=== PATIENT | female | born 1980 | race Native Hawaiian/Other Pacific Islander ===

== ENCOUNTER 2024-08-12 08:19 | Outpatient (REF) | payer OTHER, SELFPAY ==
--- NOTE | 2024-08-12 08:15 | CRLHL7_ITS ---
For Patients: As a result of the Century Cures Act, medical imaging exams and procedure reports are released immediately into your electronic medical record. You may view this report before your referring provider. If you have questions, please contact your health care provider. INDICATION: BILATERAL SCREENING MAMMOGRAM, ASYMPTOMATIC 44 Y/O FEMALE COMPARISON: BASELINE TECHNIQUE: Digital mammogram in CC and MLO projections including computer-aided detection (CAD) and tomosynthesis. BREAST COMPOSITION: The breasts are heterogeneously dense, which may obscure small masses. FINDINGS: No suspicious findings. ASSESSMENT: BI-RADS 1 Negative RECOMMENDATION: Annual screening mammogram. A lay language report of this examination will be provided to the patient. Dictated by: Shelton Constantino MD @ 08/12/2024 11:45:32 (Electronically Signed)
--- OUTSIDE RECORDS SUMMARY | 2024-08-13 00:31 | XMS_ITS | Data Portability ---
Author Organization [facility] Address [address] [place] [address] [place] [address] Assessment No assessment recorded. Plan of Treatment Reminders Order Date Submit Date Provider Last Modified By Organization Details Last Modified Time Details Appointments None recorded. Lab pap, LB + HR HPV 2023 ROLAN Not available 11:07:38 Referral None recorded. Procedures None recorded. Surgeries None recorded. Imaging MAMMO, screening, bilateral 2023 jbeitz Not available 5 15:22:00 Medication Orders clotrimazol e 1 % topical cream [address], [address], 4 16:56:03 fluconazole 150 mg tablet [address], [address], 4 16:56:17 naproxen 250 mg tablet [address], [address], 12:17:36 naproxen 250 mg tablet [address], [address], 18:29:51 Patient Targets Encounter Date Encounter Id Patient Goals Patient Target Last Modified By Organization Details Last Modified Time 08/14/2020 [id number] if weigh goes down, blood sugar will decrease antony Not available 08/15/2020 12:16:10 Patient Instructions Encounter Date Encounter Id Patient Instructions Last Modified By Organization Details Last Modified Time 07/16/2020 [id number] x-ray if not improved antony Not available 07/16/2020 18:28:40 Reason for Referral None Reported. Results Created Date Observation Date Name Description Value Unit Range Abnormal Flag Note LastModifiedBy Organization Detail LastModifiedTime 08/14/19 21 08/13/2020 lipid panel , serum creatinine 0.5 Not Available Not Luz Maria ilable 08/14/2020 17:19:23 08/14/19 21 08/13/2020 lipid panel , serum ALT 21 Not Available Not Availa ble 08/14/2020 17:19:23 08/14/19 21 08/13/2020 lipid panel , serum total cholesterol 189 Not Available Not Available 08/14/2020 17:19:23 08/14/19 21 08/13/2020 lipid panel , serum triglyceride s 172 Not Available Not Available 07/25 17:19:23 08/14/19 21 08/13/2020 lipid panel , serum HDL 45 Not Available Not Availa ble 08/14/2020 17:19:23 08/14/19 21 08/13/2020 lipid panel , serum LDL 110 Not Available Not Availa ble 08/14/2020 17:19:23 08/14/19 21 08/13/2020 CMP, serum or plasm a creatinine 0.5 Not Available Not Luz Maria ilable 08/14/2020 15:04:46 08/14/19 21 08/13/2020 CMP, serum or plasm a ALT 21 Not Available Not Availa ble 08/14/2020 15:04:46 08/14/19 21 08/13/2020 CMP, serum or plasm a total cholesterol 189 Not Available Not Available 08/14/2020 15:04:46 08/14/19 21 08/13/2020 CMP, serum or plasm a triglyceride s 172 Not Available Not Available 07/25 15:04:46 08/14/19 21 08/13/2020 CMP, serum or plasm a HDL 45 Not Available Not Availa ble 08/14/2020 15:04:46 08/14/19 21 08/13/2020 CMP, serum or plasm a LDL 110 Not Available Not Availa ble 08/14/2020 15:04:46 08/13/19 25 08/12/2024 MAMMO , scree cristóbal, bilat eral No observ ation record ed. [facility] [address] [place], [address], 08/12/2024 12:49:47 Result Notes None recorded. Medical Equipment None Reported. Medications Name Sig Start Date Stop Date Status Note LastModified by Organization Details LastModified Time fluconazole 150 mg tablet TAKE 1 TABLET ONCE A WEEK FOR 2-4 WEEKS UNTIL SYMPTOMS IMPROVE KAY 1 TABLETA POLLY VEZ POR SEMANA POR ENTRE 2-4 SEMANAS active Not Available Not Available No t Available Prilosec 20 mg capsule,del ayed release take 1 capsule by oral route every day 30 minutes to 1 hour before a meal 07/16 completed Not Available Not Available Not Available naproxen 250 mg tablet TAKE ONE TABLET BY MOUTH TWICE A DAY active Not Available Not Available No t Available Antifungal (clotrimazo le) 1 % topical cream APPLY TO THE AFFECTED AND SURROUNDI NG AREAS OF SKIN BY TOPICAL ROUTE 2 TIMES PER DAY IN THE MORNING AND EVENING active Not Available Not Available No t Available Vitals Date Recorded Body weight Systolic blood pressure Diastolic blood pressure Provider Name and Address Organization Details Last Updated DateTime 08/14/2020 18088.97 g 110 mm[Hg] 64 mm[Hg] Arnoldo Forte MD [address] [place], [address], [place] [facility] 08/15/2020 12:12:15 Date Recorded Body height Body mass index (BMI) Body weight Oxygen saturation Oxygen saturation in Arterial blood by Pulse oximetry Heart rate Systolic blood pressure Diastolic blood pressure Provider Name and Address Organization Details Last Updated DateTime 4 149 cm 29.8 kg/m2 70262.4 1 g 99 % 99 % 98 /min 119 mm[Hg] 67 mm[Hg] LEXI Arriaga [address] [place], [address], [place] [facility] [employer] 15:50:53 Social History None recorded. Functional Status None recorded. Mental Status None recorded. Family History Nothing Reported. Medical History No medical history recorded. Gynecological HistoryNo gynecological history recorded. Obstetrics History GPAL:G 0 P 0 0 0 0 Past Encounters Encounter ID Performer Location Encounter Start Date Encounter Closed Date Diagnosis/Indication Diagnosis SNOMED-CT Code Diagnosis ICD10 Code Diagnosis Note [id number] Arnoldo Forte MD [facility] [address] [place] [address] 07/16/2020 16:39:06 07/16/2020 18:10:49 Pain in right foot 5660200704 14881 M79.671 needs analgesia [id number] Arnoldo Forte MD [facility] [address] [place] [address] 08/14/2020 18:09:52 08/15/2020 14:34:14 Pain in right foot 2883194690 65708 M79.671 should resume naproxen with food [id number] LEXI Arriaga [facility] [address] [place] [address] 11/30/2023 15:37:48 11/30/2023 16:34:16 Genitocrural intertrigo caused by Key [id number] B37.2 Treat intertrigo with PO fluconazol e 150mg once/week for 2-4 weeksMay also use topical clotrimazo le to the area twice daily ( can also try this)F/U if not resolving Screening for malignant neoplasm of cervix 107822386 Z12.4 Pap and HPV pendingWil l f/u with results when available. If normal, rescreen in 5 yerasS[facility]: [facility] 1225 Screening for malignant neoplasm of breast 375377221 Z12.39 Normal CBEScreeni ng mammogram pending MATIAS: [facility] 1225 Health Concerns Section Related Observation LastModified by Organization Detai ls LastModified Time None Recorded Concern Status LastModified by Organization Details LastModified Time None Recorded Advance Directives Directive None Recorded Payers Insurance Date Sequence Insurance Name Policy Number Policy Turpin Covered Member ID Turpin Member ID Guarantor Name 07/03/2020 SLIDING FEE SCHEDULE - DISCOUNT Tina Ferreira 01/26/2024 [place] SCREENING PROGRAM - [place] [employer] Tina Ferreira [id number] Tina Ferreira Notes Date Note Type Note Provider Name and Address Organization Details Recorded Time 07/16/2020 text/html picking like discomfort in right fifth toe, no injury, hx of fatty liver Arnoldo Forte MD [address] [place], [address], [email or web address] 07/16/2020 18:30:35 08/14/2020 text/html improved on NSAI D, stopped it and them recurred, job at [employer] Arnoldo Forte MD [address] [place], [address], [facility] 08/15/2020 12:17:53 11/30/2023 text/html Pt here today wi th c/o vaginal irritationFirst visit with this providerPt reports that after her last period, she had sex and then afterward began noticing some burning and itching in the perineumDid buy a vaginal cream in the pharmacy (vagisil anti itch) but it didn't helpDid switch menstrual pads and wonders if this related to that change?Denies discharge, dysuria, hematuria, urinary frequency, urgency.Says has had some penile irritation as wellHx of tubal ligation at age 28 LMP: 2 weeks ago Preventative:- cervical ca screening: unsure, can't remember last time she had it.- Breast ca screening: has never had. denies FH of breast ca LEXI Arriaga [address] [place], [address], [facility] 11/30/2023 16:33:13 OBGyn Episode No OBEpisode recorded.
--- OUTSIDE RECORDS SUMMARY | 2024-08-13 00:31 | XMS_ITS | Clinical Summary ---
Author Organization [email or web address] Address [address] [place] [address] Care Team Providers Care Automatic Data Processing Planner Name Role Phone Pcp, No Primary Care Provider Unavailabl e Allergies No known active allergies Medications hydrocortisone (PREPARATION H HYDROCORTISONE) 1 % creamIndication s:Hemorrhoid Apply topically to affected area(s) 2 times daily if needed for Itching. 1 Tube 0 5 Active Active Problems Problem Noted Date Diagnosed Date Esophageal reflux 09/18/2006 Overview (09/18/2006): Gastroesophageal Reflux Immunizations Immunization Administration Dates Next Due AMB Influenza, IIV3 (Age >=3 years)(Flu Clinic O nly) 12/23/2010,12/04/2008 AMB Influenza, IIV4 PF (=>6 mos Flulaval,Fluzone Fluarix)(Flu Clinic Only) 01/13/2014 Influenza A (H1N1), Inactivated (Age >=3 Years) 01/10/2009 Td (Age >=7 Years) 02/24/1996 Tdap 10/26/2007 Family History Medical History Relation Name Comments Good Health Brother Unknown Father Good Health Mother Good Health Sister Cancer-breast No Family History Cancer-colon No Family History Heart Disease No Family History Hyperlipidemia No Family History Hypertension No Family History Relation Name Status Comments Brother Father Mother Sister Social History Tobacco Use Types Packs/Day Years Used Date Smoking Tobacco: Never Smokeless Tobacco: Never Tobacco Cessation:Counseling Given: Yes Alcohol Use Standard Drinks/Week Comments No 0 (1 standard drink = 0.6 oz pur e alcohol) Comments No Sex and Gender Information Value Date Recorded Sex Assigned at Not on file 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 Please review and update details. Last Filed Vital Signs Vital Sign Reading Time Taken Comments Blood Pressure 95/60 07/04/2015 4:12 PM CDT Pulse 77 07/04/2015 4:12 PM CDT Temperature 36.9 C (98.5 F) 07/04/2015 4:12 PM CDT Respiratory Rate - - Oxygen Saturation 98% 07/04/2015 4:12 PM CDT Inhaled Oxygen Concentration - - Weight 61.1 kg (134 lb 12.8 oz) 07/04/2015 4:12 PM CDT Height 148.6 cm (4' 10.5) 07/04/2015 4:12 PM CD T Body Mass Index 27.69 07/04/2015 4:12 PM CDT Plan of Treatment Health Maintenance Due Date Last Done Comments Hepatitis C screening for age 18-79 2000 Hepatitis B series for 19+ (1 of 3 - 19+ 3-dose series) 2001 BMI (ht and wt on same day) for age 18+ 07/03/2016 07/04/2015 Depression screening for age 12+ 07/03/2016 07/04/2015 Tetanus booster 10/25/2017 10/26/2007, 02/24/1996 Pap test for age 21-65 07/03/2018 6, 05/24/2012, 06/18/2010, Additional history exists COVID-19 vaccine series (2023- season) 2023 Influenza Vaccine (Season Ended) 2024 01/13/2014, 12/23/2010, 12/04/2008 Tdap Completed 10/26/2007 HIV for age 15-65 Completed 07/28/2008, 09/17/2006 Pneumococcal series for age 6-49 Aged Out No longer eligible based on patient's age to complete this topic Procedures Procedure Name Priority Date/Time Associated Diagnosis Comments [employer] THIN PREP PAP SCREEN IMAGED Routine 07/04/2015 5:29 PM CDT Screening ANTI HIV 1/2 Routine 07/28/2008 3:18 PM CDT Supervision of Other Normal (HC) from Last 3 Months or Most Recently Relevant to Health Maintenance Results * [employer] THIN PREP PAP SCREEN IMAGED (07/04/2015 5:29 PM CDT) [employer] LE[employer]ER CYTOLOGY See Anatomic Pathology case 07/05/2015 6:00 PM CDT [facility] Specimen (specimen) (Cervical) Non-Blood / Unknown 07/04/2015 5:29 PM CDT 07/04/2015 5:29 PM CDT us Miki Pereyra MD PATHOLOGY/CYTOLOGY Final Result [facility] [address] [place] [address], * HIV (07/28/2008 3:18 PM CDT) ANTI HIV 1/2 Non-reacti ve [facility] Blood specimen (specimen) BLOOD SPECIMEN / Unknown 07/28/2008 3:18 PM CDT 07/28/2008 3:17 PM CDT us Monet Johnson NP SEND OUTS F inal Result [facility] [place]NAL ZIP [id number] [address] from Last 3 Months or Most Recently Relevant to Health Maintenance Care Teams Automatic Data Processing Planner Relationship Specialty Start Date End Date Pcp, No . PCP - General 03/01/24
== END 2024-08-12 08:20 | disposition home or self-care (01) ==
LOC: MAMMO 08:19
PROVIDERS: PCP Family Medicine; Visit Provider Nurse Practitioner Family
DX: Z12.31 Encounter for screening mammogram for malignant neoplasm of breast (principal); R92.333 Mammographic heterogeneous density, bilateral breasts
CPT/HCPCS: 77063; 77067; T1013